=== PATIENT | female | born 1935 | race Caucasian/White ===

== ENCOUNTER → 2018-01-02 | Outpatient (CLI) | payer MEDICARE, OTHER ==
[~2018-01-02] MED LIST: ALENDRONATE; CRESTOR
== END ==
LOC: M.RAD 10:42
DX: Z12.31 Encounter for screening mammogram for malignant neoplasm of breast (principal)

== ENCOUNTER → 2018-07-24 | Outpatient (CLI) | payer MEDICARE, OTHER | LOC: M.RAD 09:59 | DX: M81.0 Age-related osteoporosis without current pathological fracture (principal) ==